=== PATIENT | female | born 1940 | race Caucasian/White ===

== ENCOUNTER 2018-01-27 19:52 | Emergency (ER) | payer OTHER ==
[~2018-01-27] VITALS: Ht 165.1 cm; Wt 101.5 kg
[~2018-01-27 19:52] MED LIST: ACET-1256 PO; AMLO5TAB2 PO; ASPI81TA25 PO; ATEN-171 PO; CAND1TAB21 PO; CO Q10 PO; FENO134C2 PO; GLIM1TAB2 PO; IMDSR30 PO; METF1000 PO; MULT-506 PO; OMEP20TA PO; OXYB5TAB PO; PIOG1TAB23 PO; SIMV10TA5 PO; VITAMIN D PO
[2018-01-27 19:57] VITALS: TEMP 36.9; Ht 165.1 cm; Wt 101.5 kg
[2018-01-27] MEDS ORDERED: DEXAMETHASONE INJ 10 MG in SYRINGE 0 ML IV STA (20:08)
[2018-01-27] MEDS ORDERED: OXYCODONE HCL IR 5 MG TAB (IMMEDIATE RELEASE) PO STA (20:08)
[2018-01-27] MEDS ORDERED: DEXAMETHASONE **PF** INJ 10 MG/ML VIAL ONE (20:30)
[2018-01-27] MEDS ORDERED: GEMF600T3 PO (20:35)
[2018-01-27] MEDS ORDERED: CAND32TA2 PO (20:35)
[2018-01-27] MEDS ORDERED: [UNRECOGNIZED DRUG - CODE] PO (20:35)
[2018-01-27] MEDS ORDERED: GLC/500 PO (20:35)
[2018-01-27] MEDS ORDERED: CAND16TA2 PO (20:35)
[2018-01-27] MEDS ORDERED: CHOL400T PO (20:35)
[2018-01-27] MEDS ORDERED: ISOS30TA3 PO (20:35)
[2018-01-27] MEDS ORDERED: ACT/45 PO (20:35)
[2018-01-27 20:49] LABS: HEMATOCRIT 40.1 % (37-47); HEMOGLOBIN 12.6 g/dL (12.0-16.0); MEAN CELL VOLUME 95.9 fL (80-100); MEAN CORPUSCULAR HEMOGLOBIN 30.1 pg (25-34); MEAN CORPUSCULAR HGB CONC 31.4 g/dl (32-36); MEAN PLATELET VOLUME 9.8 fL (7.4-10.4); PLATELET COUNT 268 K/uL (130-400); RED CELL DISTRIBUTION WIDTH CV 14.2 % (11.5-14.5); RED CELL DISTRIBUTION WIDTH SD 49.7 fL (36.4-46.3); WHITE BLOOD COUNT 6.88 K/uL (4.8-10.8)
[2018-01-27 21:06] LABS: CALCIUM 8.6 mg/dl (8.5-10.1); CREATININE 1.43 mg/dl (0.60-1.20); POTASSIUM 4.6 mmol/L (3.5-5.1)
[2018-01-27 21:26] LABS: BASO % 0.1 %; BASO ABS # 0.01 K/uL (0-0.2); EOS % 2.6 %; EOS ABS # 0.18 K/uL (0-0.5); IG# 0.04 K/uL (0.00-0.02); LYMPH % 27.9 %; LYMPH ABS # 1.92 K/uL (1.2-3.4); MONO % 11.6 %; NEUT % 57.2 %; NEUT ABS # 3.93 K/uL (1.4-6.5)
--- NOTE | 2018-01-27 21:27 | DIAGNOSTIC IMAGING REPORT ---
L PELVIS/UNILATERAL HIP 2-3VIEWS CLINICAL HISTORY: 77 years-old Female presenting with LT HIP PAIN. TECHNIQUE: Single frontal view the pelvis and frontal and frog-leg lateral views of the left hip were obtained. COMPARISON: None. FINDINGS: Sacroiliac joints, hip joints, and pubic symphysis congruent though with mild degenerative change. Bony pelvis intact. Femoral necks intact. Degenerative changes of the lower lumbar spine. IMPRESSION: 1. No acute osseous injury of the pelvis. 2. No acute osseous injury of the left hip. 3. Mild degenerative changes throughout the pelvis and hips. Electronically signed by: Mulugeta Chandler M.D. 01/27/2018 9:25 PM Dictated Date/Time: 01/27/2018 9:24 PM
--- NOTE | 2018-01-27 21:29 | DIAGNOSTIC IMAGING REPORT ---
C-SPINE ROUTINE 4 OR 5 VIEWS CLINICAL HISTORY: 77 years-old Female presenting with eval disc dz, left shoulder and arm pain for one day, no known injury. TECHNIQUE: Frontal, bilateral oblique, lateral, and open-mouth odontoid views of the cervical spine were obtained. COMPARISON: None. FINDINGS: Normal cervical lordosis. The C7 vertebral body is fully visualized. Vertebral body height loss of C5 and C6 likely degenerative and/or related to osteopenia. Remaining vertebral body levels are preserved. Intervertebral disc height loss at C5-6 and to a lesser extent at C6-7. Prominent disc osteophyte complexes at C5-6 and C6-7 with suspected posterior bony spurring. Mild osseous neural foraminal narrowing may be present at C3-4 and C5-6. No radiographic evidence of acute fracture or subluxation. Lateral masses of C1 articulate normally with C2. The predental interval is normal. No prevertebral soft tissue swelling. Lung apices clear. IMPRESSION: Multilevel degenerative changes most severe at C5-6 and C6-7, where there is suspected osseous spinal canal narrowing. Neural foraminal narrowing suspected at C3-4 and C5-6. Electronically signed by: Mulugeta Chandler M.D. 01/27/2018 9:28 PM Dictated Date/Time: 01/27/2018 9:26 PM
[2018-01-27] MEDS ORDERED: OXYC1TAB3 PO (22:07)
[2018-01-27] MEDS ORDERED: PRED20TA PO (22:07)
[2018-01-27] MEDS ORDERED: ONDANSETRON 4MG OD TAB PO ONE (22:15)
--- NOTE | 2018-01-27 22:15 | DIAGNOSTIC IMAGING REPORT ---
L-SPINE MIN 4 VIEWS ROUTINE CLINICAL HISTORY: 77 years-old Female presenting with eval for fx, back pain. TECHNIQUE: Frontal, bilateral oblique, lateral and coned in lateral views lumbar spine were obtained. COMPARISON: None. FINDINGS: No scoliosis. Normal lumbar lordosis. Vertebral bodies maintain normal height. 3 mm of 1 anterolisthesis of L3 on L4. Intervertebral disc height loss of L5-S1. The remaining disc heights are essentially preserved though extensive anterior osteophytosis is present. Osseous neural foraminal narrowing may be present at L5-S1. No compression deformity. Cholecystectomy clips noted. IMPRESSION: 1. Multilevel degenerative changes with possible osseous neural foraminal narrowing at L5-S1. 2. No compression deformity. Electronically signed by: Mulugeta Chandler M.D. 01/27/2018 10:13 PM Dictated Date/Time: 01/27/2018 10:11 PM
[2018-01-27] MEDS ORDERED: ONDANSETRON HOME PACK 4MG OD TAB PO ONE (22:30)
[2018-01-27 22:37] VITALS: BP 132/53; PULSE 63; O2SAT 94
--- NOTE | 2018-01-27 23:32 | EMERGENCY ROOM VISIT NOTE ---
History Report prepared by Key: Héctor Browne Under the Supervision of: Dr. Fabian Alejandra M.D. First contact with patient: 19:59 Chief Complaint: SHOULDER PAIN Stated Complaint: L SHOULDER, NECK AND ARM PAIN History of Present Illness The patient is a 77 year old female who presents to the Emergency Room with complaints of constant pain in the left side of her neck and left shoulder that began yesterday. The patient states that the pain starts in the left side of her neck and radiates down into her left shoulder, and down into her left elbow. She is unable to describe the quality of her pain, but notes that it is worsened with ROM of the left shoulder and tilting her head backward. She denies any numbness/tingling in her arm. There is not any chest pain or shortness of breath. The patient did go to [email or web address] before coming to the Emergency Department, they suggested coming to the ED to rule-out cardiac disease as she had a Myocardial Infarction at 58. She states that these symptoms do not feel similar to her previous heart attack episode. Source of History: patient Onset: Yesterday Position: neck, shoulder (left) Quality: other (Unable to describe) Modifying Factors (Worsening): other (ROM of left shoulder, tilting head back ) Associated Symptoms: No chest pain, No SOB, No weakness, No numbness Review of Systems See HPI for pertinent positives & negatives. A total of 10 systems reviewed and were otherwise negative. Past Medical & Surgical Hx of Appendectomy. Family History Omitted Secondary to Age. Social History Smoking Status: Never Smoker Marital Status: Housing Status: lives with significant other Occupation Status: retired Current/Historical Medications Scheduled Acetaminophen (Tylenol), 1,000 MG PO PRN Aspirin (Aspir-Low), 81 MG PO QAM Atenolol/Chlorthalidone (Tenoretic 50 Mg/25 Mg), 1 TAB PO QAM Candesartan Cilexetil (Atacand), 16 MG PO DAILY Cholecalciferol (Vitamin D), 400 UNITS PO BID Coenzyme Q10 (Ubidecarenone) (Coq-10 Tr), 100 MG PO QPM Gemfibrozil (Lopid), 600 MG PO BID PRIOR TO MEALS Isosorbide Mononitrate Ext Rel (Imdur Ext Rel), 30 MG PO QAM Metformin Hcl (Glucophage), 500 MG PO BID Multivitamin (Multivitamin), 1 TAB PO QAM Pioglitazone Hcl (Actos), 45 MG PO QAM Prednisone (Prednisone), 0 PO DAILY Scheduled PRN Oxycodone Ir (Roxicodone Ir), 5 MG PO Q4H PRN for Pain Allergies Coded Allergies: Morphine (Verified Allergy, Unknown, NAUSEA, 01/27/18) Naproxen (Verified Allergy, Unknown, NAUSEA, 02/18/15) Physical Exam Vital Signs Date Time Temp Pulse Resp B/P (MAP) Pulse Ox O2 Delivery O2 Flow Rate FiO2 01/27/18 22:37 63 18 132/53 94 01/27/18 22:00 68 18 202/72 94 Room Air 01/27/18 19:57 36.9 66 20 198/75 96 Room Air Physical Exam Constitutional: Vital signs reviewed. Eyes: Pupils are equal round reactive to light. Conjunctiva are noninjected. ENT: Pharynx is clear without erythema or exudate. Mucous membranes are moist. NECK: There is pain with extension of the neck. Positive Spurling's Maneuver. Respiratory: Clear to auscultation bilaterally. Breath sounds are equal bilaterally. Cardiovascular: Regular rate and rhythm. No rubs or gallops. GI: Soft, nondistended and nontender. Bowel sounds are present. Musculoskeletal: Some edema to the lower extremities. Integumentary: No cyanosis. Neurological: The patient is awake and alert. No focal deficits. Motor and sensation intact in upper extremities throughout all major nerve distributions. Psychiatric: Normal affect. Medical Decision & Procedures ER Provider Diagnostic Interpretation: Radiology results as stated below per my review and the radiologist's interpretation: L PELVIS/UNILATERAL HIP 2-3VIEWS CLINICAL HISTORY: 77 years-old Female presenting with LT HIP PAIN. TECHNIQUE: Single frontal view the pelvis and frontal and frog-leg lateral views of the left hip were obtained. COMPARISON: None. FINDINGS: Sacroiliac joints, hip joints, and pubic symphysis congruent though with mild degenerative change. Bony pelvis intact. Femoral necks intact. Degenerative changes of the lower lumbar spine. IMPRESSION: 1. No acute osseous injury of the pelvis. 2. No acute osseous injury of the left hip. 3. Mild degenerative changes throughout the pelvis and hips. Electronically signed by: Mulugeta Chandler M.D. 01/27/2018 9:25 PM Dictated Date/Time: 01/27/2018 9:24 PM C-SPINE ROUTINE 4 OR 5 VIEWS CLINICAL HISTORY: 77 years-old Female presenting with eval disc dz, left shoulder and arm pain for one day, no known injury. TECHNIQUE: Frontal, bilateral oblique, lateral, and open-mouth odontoid views of the cervical spine were obtained. COMPARISON: None. FINDINGS: Normal cervical lordosis. The C7 vertebral body is fully visualized. Vertebral body height loss of C5 and C6 likely degenerative and/or related to osteopenia. Remaining vertebral body levels are preserved. Intervertebral disc height loss at C5-6 and to a lesser extent at C6-7. Prominent disc osteophyte complexes at C5-6 and C6-7 with suspected posterior bony spurring. Mild osseous neural foraminal narrowing may be present at C3-4 and C5-6. No radiographic evidence of acute fracture or subluxation. Lateral masses of C1 articulate normally with C2. The predental interval is normal. No prevertebral soft tissue swelling. Lung apices clear. IMPRESSION: Multilevel degenerative changes most severe at C5-6 and C6-7, where there is suspected osseous spinal canal narrowing. Neural foraminal narrowing suspected at C3-4 and C5-6. Electronically signed by: Mulugeta Chandler M.D. 01/27/2018 9:28 PM Dictated Date/Time: 01/27/2018 9:26 PM L-SPINE MIN 4 VIEWS ROUTINE CLINICAL HISTORY: 77 years-old Female presenting with eval for fx, back pain. TECHNIQUE: Frontal, bilateral oblique, lateral and coned in lateral views lumbar spine were obtained. COMPARISON: None. FINDINGS: No scoliosis. Normal lumbar lordosis. Vertebral bodies maintain normal height. 3 mm of 1 anterolisthesis of L3 on L4. Intervertebral disc height loss of L5-S1. The remaining disc heights are essentially preserved though extensive anterior osteophytosis is present. Osseous neural foraminal narrowing may be present at L5-S1. No compression deformity. Cholecystectomy clips noted. IMPRESSION: 1. Multilevel degenerative changes with possible osseous neural foraminal narrowing at L5-S1. 2. No compression deformity. Laboratory Results 01/27/18 20:33 Red Blood Count 4.18, Mean Corpuscular Volume 95.9, Mean Corpuscular Hemoglobin 30.1, Mean Corpuscular Hemoglobin Concent 31.4, Mean Platelet Volume 9.8, Neutrophils (%) (Auto) 57.2, Lymphocytes (%) (Auto) 27.9, Monocytes (%) (Auto) 11.6, Eosinophils (%) (Auto) 2.6, Basophils (%) (Auto) 0.1, Neutrophils # (Auto ) 3.93, Lymphocytes # (Auto) 1.92, Monocytes # (Auto) 0.80, Eosinophils # (Auto ) 0.18, Basophils # (Auto) 0.01 01/27/18 20:33 Test 01/27/18 20:33 01/27/18 20:36 White Blood Count 6.88 K/uL (4.8-10.8) Red Blood Count 4.18 M/uL (4.2-5.4) Hemoglobin 12.6 g/dL (12.0-16.0) Hematocrit 40.1 % (37-47) Mean Corpuscular Volume 95.9 fL (80-100) Mean Corpuscular Hemoglobin 30.1 pg (25-34) Mean Corpuscular Hemoglobin Concent 31.4 g/dl (32-36) Platelet Count 268 K/uL (130-400) Mean Platelet Volume 9.8 fL (7.4-10.4) Neutrophils (%) (Auto) 57.2 % Lymphocytes (%) (Auto) 27.9 % Monocytes (%) (Auto) 11.6 % Eosinophils (%) (Auto) 2.6 % Basophils (%) (Auto) 0.1 % Neutrophils # (Auto) 3.93 K/uL (1.4-6.5) Lymphocytes # (Auto) 1.92 K/uL (1.2-3.4) Monocytes # (Auto) 0.80 K/uL (0.11-0.59) Eosinophils # (Auto) 0.18 K/uL (0-0.5) Basophils # (Auto) 0.01 K/uL (0-0.2) RDW Standard Deviation 49.7 fL (36.4-46.3) RDW Coefficient of Variation 14.2 % (11.5-14.5) Immature Granulocyte % (Auto) 0.6 % Immature Granulocyte # (Auto) 0.04 K/uL (0.00-0.02) Red Blood Cell Morphology Unremarkable Anion Gap 5.0 mmol/L (3-11) Est Creatinine Clear Calc Drug Dose 38.9 ml/min Estimated GFR () 40.8 Estimated GFR (Non- 35.2 BUN/Creatinine Ratio 23.2 (10-20) Calcium Level 8.6 mg/dl (8.5-10.1) Bedside Troponin I < 0.030 ng/ml (0-0.045) Laboratory results as reviewed by me. Medications Administered Medications (Trade) Dose Ordered Sig/Jamila Route Start Time Stop Time Status Last Admin Dose Admin Dexamethasone Sodium Phosphate 10 mg/Syringe 2.5 ml @ 1 mls/min NOW STAT IV 01/27/18 20:08 01/27/18 20:13 DC 01/27/18 20:38 1 MLS/MIN Oxycodone HCl (Roxicodone Immediate Rel Tab) 5 mg NOW STAT PO 01/27/18 20:08 01/27/18 20:13 DC 01/27/18 20:25 5 MG Ondansetron HCl (Zofran Odt) 4 mg ONE ONCE PO 01/27/18 22:15 01/27/18 22:16 DC 01/27/18 22:12 4 MG Ondansetron HCl (ZOFRAN ODT 4MG Home Pack) 1 homepack UD ONCE PO 01/27/18 22:30 01/27/18 22:31 DC 01/27/18 22:30 1 HOMEPACK ECG Per My Interpretation Indication: back/shoulder pain (arm pain left) Rate (beats per minute): 62 Rhythm: normal sinus Findings: other (No ST-elevation, no PVCs) ED Course 2000: The patient was evaluated in room C10. A complete history and physical exam was performed. 2007: Ordered Oxycodone HCl 5 mg PO, Dexamethasone 2.5 mL @ 1 mL/min IV. 2046: The nursing staff has informed me that the patient is requesting a hip x- ray at this time due to previous hip problems. 2123: I reevaluated the patient at this time. She is feeling better, but notes that she has been having pain in her left hip going all the way down to her left ankle for sometime. She also says that she has chronic kidney disease and that her creatinine is commonly high. 2126: I performed a PDMP search at this time. 2211: I spoke with the patient and discussed test results at this time. She states that she got dizzy from being rolled around on the stretcher to much. She is ready to go home. 2215: Ordered Zofran 4 mg PO. Medical Decision This is a 77-year-old female who presents with neck pain and arm pain. Differential diagnosis includes cervical radiculopathy, intervertebral disc disease, strain, brachial plexopathy, cardiac disease. I did perform a limited focused review of portions of the patient's old chart on the electronic medical record. The patient has had no recent pertinent visits to this hospital. I did evaluate the patient as noted above. The patient is presenting with neck pain rating down her left arm since yesterday. She has a positive Spurling's test. She also has pain with extension of her neck. Her symptoms seem consistent with cervical radiculopathy. She also complains of pain in her lower back and hip radiating down to her ankle which she has had for some time. I suspect she also has lumbar disc disease as well. She does not have any chest pain and her symptoms do not appear to be cardiac in nature but she was sent here by an urgent care center for blood work and so I did go ahead and order some blood work on her. IV access was established. I did treat the patient with Decadron IV. She was also given oxycodone. I did order and review the patient's blood work as noted in the electronic medical record. Troponin is negative. Her creatinine is elevated but she states it is a chronic condition. 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 I did order and personally review the patient's 12-lead EKG as described above. She has no acute ischemic changes. I did order x-rays of her cervical spine, hip and lumbar spine. I did review the images myself as well as the radiology report as described above. She does have findings consistent with intervertebral disc disease as well as foraminal narrowing consistent with her diagnosis of radiculopathy. I did discuss the test results with the patient and her family. She did feel nauseated from the medication as well as from being wheeled around to x-ray. She was given Zofran. I did recommend she follow-up closely with her doctor for further evaluation and referral to physical therapy and possibly orthopedic spine. She was discharged in good condition and given return instructions as outlined below. She was given a short prescription for steroids and oxycodone. She was given precautions regarding this medication. [place] Drug Monitoring Program Search Results: patient reviewed within database, no issues identified Medication Reconcilliation Current Medication List: was personally reviewed by me Blood Pressure Screening Patient's blood pressure: Elevated blood pressure Impression Primary Impression: Cervical radiculopathy Additional Impression: Lumbar radiculopathy Scribe Attestation The scribe's documentation has been prepared under my direct and personally reviewed by me in its entirety. I confirm that the note above accurately reflects all work, treatment, procedures, and medical decision making performed by me. Departure Information Dispostion Home / Self-Care Prescriptions Oxycodone Ir (Roxicodone Ir) 5 Mg Tab 5 MG PO Q4H Y for Pain, #20 TAB Prov: Fabian Alejandra M.D. 01/27/18 Prednisone (Prednisone) 20 Mg Tab 0 PO DAILY, #14 TAB 3 TABS DAILY FOR 2 DAYS, THEN 2 TABS DAILY FOR 2 DAYS, THEN 1 TAB DAILY FOR 2 DAYS, THEN 1/2 TAB DAILY FOR 2 DAYS. Prov: Fabian Alejandra M.D. 01/27/18 Referrals Alexander Herzog M.D. (PCP) Forms HOME CARE DOCUMENTATION FORM, IMPORTANT VISIT INFORMATION Patient Instructions My [facility] Additional Instructions You have been examined and treated today on an emergency basis only. This is not a substitute for, or an effort to provide, complete comprehensive medical care. It is impossible to recognize and treat all injuries or illnesses in a single emergency department visit. It is therefore important that you follow up closely with your physician. Call as soon as possible for an appointment. Return for worsening symptoms or if you develop fever, vomiting, abdominal pain , loss of control of your bowel or bladder, numbness or weakness to your arms or legs, numbness to your private area, difficulty urinating, or any other concerning symptoms. Problem Qualifiers
== END 2018-01-27 22:38 | disposition home or self-care (01) ==
LOC: C.EDB 19:53 → C.EDC 22:38
DX: M54.12 Radiculopathy, cervical region (principal); M54.16 Radiculopathy, lumbar region; R03.0 Elevated blood-pressure reading, without diagnosis of hypertension; Z79.82 Long term (current) use of aspirin; Z79.84 Long term (current) use of oral hypoglycemic drugs; Z88.1 Allergy status to other antibiotic agents; Z88.6 Allergy status to analgesic agent